=== PATIENT | female | born 1985 | race Caucasian/White ===

== ENCOUNTER → 2023-07-30 | Outpatient (CLI) | payer OTHER ==
--- NOTE | 2023-07-31 11:12 | CA ---
Transthoracic Echo Report Name: Kavita Harrington Age: 38 Gender: F : 1985 Exam Date: 07/30/2023 15:28 Exam Location: [facility] Ht (in): 67 Wt (lb): 235 Ordering Physician: Karthik Cespedes DO Attending/Referring Phys: Shaina Sewell PAC [employer] Machine Operator Helper Francisca Montenegro RDCS Procedure CPT: Indications: R01.1 CARDIAC MURMER UNSPEC Cardiac Hx: Technical Quality: Technically difficult study Contrast 1: Definity Total Dose (mL): 2 Contrast 2: Total Dose (mL): MEASUREMENTS (Male / Female) Normal Values 2D ECHO LV Diastolic Diameter PLAX 4.9 cm 4.2 - 5.9 / 3.9 - 5.3 cm LV Systolic Diameter PLAX 3.6 cm IVS Diastolic Thickness 1.3 cm 0.6 - 1.0 / 0.6 - 0.9 cm LVPW Diastolic Thickness 1.3 cm 0.6 - 1.0 / 0.6 - 0.9 cm LV Relative Wall Thickness 0.5 RV Internal Dim ED PLAX 3.0 cm LA Volume 57.5 cm??? 18 - 58 / 22 - 52 cm??? LA Volume Index 25.1 cm???/m??? 16 - 28 cm???/m??? M-MODE Aortic Root Diameter MM 2.9 cm LA Systolic Diameter MM 3.8 cm LA Ao Ratio MM 1.3 AV Cusp Separation MM 1.9 cm DOPPLER AV Peak Velocity 194.0 cm/s AV Peak Gradient 15.1 mmHg AV Mean Velocity 138.2 cm/s AV Mean Gradient 8.7 mmHg AV Velocity Time Integral 37.9 cm LVOT Peak Velocity 136.0 cm/s LVOT Peak Gradient 7.4 mmHg LVOT Velocity Time Integral 24.5 cm MV Area PHT 7.3 cm??? Mitral E Point Velocity 92.4 cm/s Mitral A Point Velocity 95.1 cm/s Mitral E to A Ratio 1.0 MV Deceleration Time 103.5 ms MV E' Velocity 7.9 cm/s Mitral E to MV E' Ratio 11.7 TR Peak Velocity 254.0 cm/s TR Peak Gradient 25.8 mmHg Right Ventricular Systolic Press 30.0 mmHg FINDINGS Left Ventricle Mildly increased left ventricular wall thickness. Left ventricular cavity size mildly enlarged. Reduced global left ventricular systolic function. Left ventricular ejection fraction is estimated at 35 %. Right Ventricle Normal right ventricular size and function. Right ventricular systolic pressure within normal limits. Right Atrium Normal right atrial size. Left Atrium Mildly increased left atrial volume. Mitral Valve Structurally normal mitral valve. Mild mitral regurgitation. Aortic Valve Trileaflet aortic valve. No aortic valve stenosis or regurgitation. Tricuspid Valve Structurally normal tricuspid valve. Mild tricuspid regurgitation. Pulmonic Valve Trace pulmonic regurgitation. Pericardium No pericardial effusion. Aorta Normal size aortic root and proximal ascending aorta. CONCLUSIONS Left ventricle is mildly enlarged with the global decrease in contractility more so of the intraventricular septum in the mid to distal area. Ejection fraction is about 35% there is mild mitral and tricuspid regurgitation no significant pulmonary hypertension and no pericardial effusion Previewed by: Dr. Jamari Mina MD (Electronically Signed) Final Date: 31 July 2023 11:11
== END | disposition home or self-care (01) ==
LOC: RADECHMAIN 15:20
PROVIDERS: ATTEND Family Medicine
DX: I08.1 Rheumatic disorders of both mitral and tricuspid valves (principal); R01.1 Cardiac murmur, unspecified
CPT/HCPCS: 93306; Q9957

== ENCOUNTER 2023-09-30 10:15 | Day surgery (SDC) | payer OTHER ==
[~2023-09-30 10:15] MED LIST: ALPRAZolam 0.25 MG TAB PO PRN; ASPIRIN 325 MG TAB PO ONE; HEPARIN SODIUM,PORCINE (1 ML) 2,500 UNIT in SODIUM CHLORIDE 0.9% 250 ML IRRIGATION PRN; HEPARIN SODIUM,PORCINE 10,000 UNIT in SODIUM CHLORIDE 0.9% 1,000 ML IRRIGATION PRN; NITROGLYCERIN SL TABS 0.4 MG TAB SUBLINGUAL PRN; SODIUM CHLORIDE 0.9% 1,000 ML in EMPTY BAG 1 BAG IV SCH
[2023-09-30 10:45] LABS: Glucose,Whole Blood 82 mg/dL (70-110)
[2023-09-30 10:49] VITALS: RESP 18; TEMP 98.3
[2023-09-30] MEDS ORDERED: HEPARIN SODIUM 1,000 UN/ML (10ML VL) ONE (14:16)
[2023-09-30] MEDS ORDERED: fentaNYL (PF) 50 MCG/ML 2 ML AMP ONE (14:16)
[2023-09-30] MEDS ORDERED: VERAPAMIL 2.5 MG/ML 2 ML AMP ONE (14:16)
[2023-09-30] MEDS ORDERED: fentaNYL (PF) 50 MCG/ML 2 ML AMP IVP ONE (14:22)
[2023-09-30] MEDS ORDERED: MIDAZOLAM 2 MG/2 ML VIAL IVP ONE (14:22)
[2023-09-30] MEDS ORDERED: LIDOCAINE 2% (PF) 20 MG/ML 5 ML VIAL SQ ONE (14:24)
[2023-09-30] MEDS ORDERED: VERAPAMIL SYRINGE (5 MG/10 ML) INTRAARTER ONE (14:26)
[2023-09-30] MEDS ORDERED: HEPARIN SODIUM 1,000 UN/ML (10ML VL) IVP ONE (14:30)
[2023-09-30 17:59] VITALS: BP 129/78; PULSE 74
--- NOTE | 2023-09-30 19:00 | P.CARDCATH ---
Date of Procedure: 09/30/23 Description of Procedure: DIAGNOSTIC CORONARY ANGIOGRAPHY and LEFT HEART CATH REPORT PROCEDURES PERFORMED: Left heart catheterization Selective coronary angiography Moderate conscious sedation 21 mins Ultrasound assisted Right radial access INDICATION: Dilated cardiomyopathy with fixed defect on nuclear perfusion stress test involving distal inferior septum. CONSENT: I have discussed the risks, benefits and alternative therapies for the above-mentioned procedure, sedation/analgesia and necessary blood product administration (if indicated, as they pertain to this patient). The patient has indicated understanding and acceptance of the risks and procedures discussed. Conscious Sedation: Patient's ECG, heart rate, blood pressure, pulse oximetry was monitored throughout the duration of procedure under my direct supervision. [1] mg Versed and [50] mg Fentanyl were used for induction of moderate conscious sedation. Total duration of moderate concious sedation 21 minutes. PROCEDURE: After explaining the risks, benefits and alternatives of the above mentioned procedures in detail to the patient, informed consent was obtained. Patient was taken to the catheterization lab, prepped and draped in usual sterile fashion using universal precuations. Barbow and katy test were performed to confirm adequate perfusion to fingers. Ultrasound was used to identify the radial artery. 1% lidocaine was infiltrated over the right radial artery. A 6-German sheath was placed and secured in the right radial artery using modified Seldinger technique. The sheath was flushed and 5 mg verapamil was administered intra-arterially. J tipped wire was advanced under fluoroscopic guidance. Once the wire tip reached aortic root 6000 units of IV heparin was given. Over the wire JL4 diagnostic catheter was advanced. Wire was removed, catheter was flushed and manipulated under fluoroscopy to selectively engaged the left coronary ostium. Left coronary angioplasty was performed in different angiographic projections. This catheter was exchanged for a JR4 diagnostic catheter over the wire. The catheter was flushed and manipulated to cross the aortic valve. LV pressures were obtained. Pullback was performed across aortic valve and catheter was manipulated to selectively engage the right coronary ostium under fluoroscopic guidance. Right coronary angiography was performed in different angiographic projections. Catheter was removed over the wire. Radial sheath was flushed. The right radial sheath was removed and a TR band was placed with excellent patent hemostasis was achieved. The patient tolerated the procedure well. Patient was transported back to the post catheterization holding area in stable condition. Angiographic images were reviewed in detail. HEMODYNAMICS: Aortic Pressure: 120/85 mmHg. LV pressure: 124/6 mmHg. LVEDP 10 mmHg. SELECTIVE CORONARY ARTERIOGRAPHY: LEFT MAIN: The left main is a large caliber vessel which bifurcates into the LAD and circumflex. Left main appears angiographically normal. LEFT ANTERIOR DESCENDING CORONARY ARTERY: LAD is a large caliber vessel which wraps around to the apex. It appears angiographically normal. LEFT CIRCUMFLEX CORONARY ARTERY: It is Co-dominant vessel. Left circumflex is a large caliber vessel. It appears angiographically normal. It gives a large OM branch which appears angiographically normal. RIGHT CORONARY ARTERY: Co-Dominant vessel. The right coronary artery is a large caliber vessel which gives PDA and PLV branch. It appears angiographically normal. IMPRESSION: Angiographically normal coronary arteries as described above. Normal left sided filling pressures Nonischemic cardiomyopathy PLAN: Aggressive risk factor modification per most recent ACC/AHA guidelines. 150 cc fluids for 3 hours Discharge home in 3 hours Follow-up in the office in 1-2 weeks. Performing Physician Ludin Borrero MD
== END 2023-09-30 17:59 | disposition home or self-care (01) ==
LOC: CATHCVL 10:15
PROVIDERS: ATTEND Student in an Organized Health Care Education/Training Program
DX: I42.9 Cardiomyopathy, unspecified (principal); I50.9 Heart failure, unspecified; E66.9 Obesity, unspecified; I44.7 Left bundle-branch block, unspecified; Z79.899 Other long term (current) drug therapy; Z88.0 Allergy status to penicillin; Z88.8 Allergy status to other drugs, medicaments and biological substances
CPT/HCPCS: 93458; 76937; 81025; 99152; C1769 ×2; C1894; J2250; J3010; J1644; J2001

== ENCOUNTER → 2025-02-22 | Outpatient (CLI) | payer OTHER ==
--- NOTE | 2025-02-22 10:16 | MM ---
Reason for Exam: Screening (asymptomatic). Baseline mammogram. Patient History: Menarche at age 12. First Full-Term at age 24. Patient has history of breast feeding. Last menstrual period: 02/05/2025 Risk Values: Patti 5 year model risk: 0.6%. NCI Lifetime model risk: 11.1%. Prior Study Comparison: Patient's first Mammogram. Tissue Density: There are scattered areas of fibroglandular density. Findings: Analyzed By CAD. There is 2.5 cm lobulated mass in the anterior inner lower aspect right breast. Just posterior to this there is additional 12 mm obscured mass. In the left breast there is a 10 mm round circumscribed mass in the posterior depth slightly medial aspect approximately 14 to 15 cm distance from nipple. Overall Assessment: Incomplete: need additional imaging evaluation, BI-RAD 0 Management: Diagnostic Breast Ultrasound of both breasts. Targeted bilateral breast ultrasound. Patient should continue monthly self-breast exams. A clinical breast exam by your physician is recommended on an annual basis. This exam should not preclude additional follow-up of suspicious palpable abnormalities. Note on Patti scores and lifetime risk: 1. A Patti score greater than 3% is considered moderate risk. If this is the case, consider specialist referral to assess eligibility for a risk reducing agent. 2. If overall lifetime risk for the development of breast cancer is 20% or higher, the patient may qualify for future screening with alternating mammogram and breast MRI. [facility], , 02/22/2025 10:12 AM. Electronically signed and approved by: Neptali Fisher M.D.
== END | disposition home or self-care (01) ==
LOC: RADMAMWWP 09:22
PROVIDERS: ATTEND Family Medicine
DX: Z12.31 Encounter for screening mammogram for malignant neoplasm of breast (principal); R92.323 Mammographic fibroglandular density, bilateral breasts
CPT/HCPCS: 77067

== ENCOUNTER → 2025-03-01 | Outpatient (CLI) | payer OTHER ==
--- NOTE | 2025-03-01 14:40 | USB ---
Reason for Exam: Additional evaluation requested from abnormal screening. Patient History: Menarche at age 12. First Full-Term at age 24. Patient has history of breast feeding. Risk Values: Patti 5 year model risk: 0.6%. NCI Lifetime model risk: 11.1%. Technique: Method: Targeted. Prior Study Comparison: 02/22/2025 Bilateral MG screening mammo w CAD, [facility]. Findings: The lower inner quadrant of the right breast, the medial section of the breast of the left breast, the axilla of both breasts and the retroareolar of both breasts were scanned. Right: Targeted ultrasound lower inner quadrant 3:00 to 6:00 including scanning of the subareolar region and axilla. At the 4:00 position, 5 cm from the nipple, there is a lobulated hypoechoic circumscribed mass with some posterior shadowing measuring 2.7 x 1.7 x 1.8 cm. Biopsy is recommended. At the 5:00 position, 8 cm from the nipple, there is a second similar but smaller hypoechoic circumscribed mass measuring 9 x 10 x 7 mm. These may represent fibroadenomas but further evaluation is recommended. No other solid or cystic lesion or axillary adenopathy. Mild subareolar duct ectasia noted. Left: Targeted ultrasound medial half 6:00 to 12:00 including scanning in the subareolar region and axilla area At the 8:00 position, far peripherally, 12 cm from the nipple, there is a poorly defined area lying against the chest wall measuring 2.6 x 1.1 x 1.0 cm. Possible chest wall musculature or some deep breast tissue. This does not appear to correlate to the mammographic nodule. Three-month follow-up recommended. At the 12:00 position, 8 images from the nipple, there is a circumscribed, oval hypoechoic lesion measuring 1.1 x 1.0 x 0.4 cm. There is posterior through transmission and overall benign features favoring either a debris-filled cyst or fibroadenoma. This can be reassessed at the patient's follow-up. No other solid or cystic lesion or axillary adenopathy. Overall Assessment: Suspicious, BI-RAD 4 Management: Ultrasound Core Biopsy of the right breast. Diagnostic Mammogram of the left breast in 3 months. Right: 2 site ultrasound guided core needle biopsy. Left: Three-month follow-up diagnostic left breast mammogram for the medial nodularity as well as three-month follow-up targeted ultrasound 8:00 and 12:00 position. Results were given to the patient verbally at the time of exam. [facility], , 03/01/2025 2:37 PM. Electronically signed and approved by: Javier Chou M.D. Radiologist
== END | disposition home or self-care (01) ==
LOC: RADUSWWP 13:13
PROVIDERS: ATTEND Family Medicine
DX: R92.8 Other abnormal and inconclusive findings on diagnostic imaging of breast (principal); N63.14 Unspecified lump in the right breast, lower inner quadrant; N63.21 Unspecified lump in the left breast, upper outer quadrant

== ENCOUNTER → 2025-03-09 | Day surgery (SDC) | payer OTHER ==
--- NOTE | 2025-03-21 08:40 | MM ---
Reason for Exam: Post Procedure Mammogram. Last screening mammogram was performed less than 1 month ago. Patient History: Menarche at age 12. First Full-Term at age 24. Patient has history of breast feeding. Risk Values: Patti 5 year model risk: 0.6%. NCI Lifetime model risk: 11.1%. Prior Study Comparison: 02/22/2025 Bilateral MG screening mammo w CAD, [facility]. 03/01/2025 Bilateral US breast workup limited LONI, [facility]. Tissue Density: Right: There are scattered areas of fibroglandular density. Pathology Description: Location: 5 o'clock. Marker Left Behind. Needle Type: Bard 14g x 10cm Cores: 3 Skin Nicks: 1 Pathology Description: Location: 4 o'clock. Marker Left Behind. Needle Type: Bard 14g x 10cm Cores: 3 Skin Nicks: 1 The procedure of ultrasound guided core biopsy was explained to the patient. Benefits, alternatives, and risks were discussed. An informed consent was then obtained. A time out was performed. The patient was placed in supine positioning for imaging and for the procedure. The overlying skin was prepped and draped in usual sterile fashion. 5 ml 1% lidocaine buffered with bicarbonate was used as anesthetic into the skin and subcutaneous tissue up to area of concern in the right 4 o'clock breast, 5 cm from nipple. A marisela was made with surgical scalpel. Under ultrasound guidance, a 18-gauge biopsy gun device was used to obtain 3 core samples of the 4:00 hypoechoic mass. Following this, a coil HydroMARK biopsy clip was left in the lesion. The patient was placed in supine positioning for imaging and for the procedure. The overlying skin was prepped and draped in usual sterile fashion. 5 ml 1% lidocaine buffered with bicarbonate was used as anesthetic into the skin and subcutaneous tissue up to area of concern in the right 5 o'clock breast, 8 cm from nipple. A marisela was made with surgical scalpel. Under ultrasound guidance, a 18-gauge biopsy gun device was used to obtain 3 core samples of the 5:00 hypoechoic mass. Following this, a butterfly biopsy clip was left in the lesion. The patient tolerated the procedure well without any immediate complication. The patient was discharged home in stable condition. Postprocedure mammogram: The patient was transferred to mammography for physician ordered post procedure mammogram for clip placement verification. Post procedure mammogram demonstrates appropriate placement of clip. Impression: Successful, uncomplicated ultrasound guided core biopsy of 2 areas of concern in the right breast at 4 and 5:00. [facility], , 03/09/2025 8:57 AM. Pathology Results: Result: Benign, Fibroadenoma. Pathology and radiology were reviewed. Findings are concordant. A. RIGHT BREAST, 4:00, ULTRASOUND GUIDED CORE BIOPSY: Benign and sclerotic fibroadenoma. B. RIGHT BREAST, 5:00, ULTRASOUND GUIDED CORE BIOPSY: Benign and sclerotic fibroadenoma. Overall Assessment: Benign Assessment: MG diagnostic mammo RT wo CAD - Right: Benign, BI-RAD 2. Management: Diagnostic Breast Ultrasound of the right breast in 6 months. Electronically signed and approved by: Figueroa Montes DO
== END ==
LOC: RADUSWWP 07:16
PROVIDERS: ATTEND Family Medicine
DX: D24.1 Benign neoplasm of right breast (principal)
CPT/HCPCS: 88305; 77065; 19083; 19084; A4648